=== PATIENT | female | born 1940 | race Caucasian/White ===

== ENCOUNTER 2018-12-30 21:25 | Emergency (ER) | payer MEDICARE, OTHER ==
--- NOTE | 2018-12-30 21:39 | EDM.PDOC ---
ED HPI GENERAL MEDICAL PROBLEM - General Stated Complaint: BLACK STOOL AND WEAKNESS Time Seen by Provider: 12/30/18 21:38 Source of Information: Reports: Patient History Limitations: Reports: No Limitations - History of Present Illness INITIAL COMMENTS - FREE TEXT/NARRATIVE: had 2x black stools yesterday, then again today and feels weak. - Related Data Allergies Allergy/AdvReac Type Severity Reaction Status Date / Time amlodipine besylate Allergy Cannot Verified 12/30/18 21:41 [From Norvasc] Remember lisinopril Allergy Cannot Verified 12/30/18 21:41 Remember losartan [Losartan] Allergy Cannot Verified 12/30/18 21:41 Remember sulfamethoxazole Allergy Other Verified 12/30/18 21:43 [From Bactrim] trimethoprim [From Bactrim] Allergy Other Verified 12/30/18 21:43 Home Meds: Home Meds Insulin Glarg,Human.Rec.Analog [Lantus Solostar] 29 units SQ BEDTIME 08/28/14 [ History] Metoprolol Succinate [Toprol XL] 25 mg PO BEDTIME 08/28/14 [History] Simvastatin 20 mg PO BEDTIME 08/28/14 [History] Acetaminophen 650 mg PO Q4HR PRN 07/09/15 [History] Aspirin [Halfprin] 81 mg PO DAILY 07/09/15 [History] Calcium Carbonate/Vitamin D3 [Calcium 600 + D Tablet] 1 each PO DAILY 07/09/15 [ History] Cyanocobalamin (Vitamin B12) [Vitamin B12] 1,000 mcg PO DAILY 07/09/15 [History] Ferrous Sulfate 325 mg PO TIDMEALS 07/09/15 [History] Insulin Aspart [Novolog Flexpen] 10 units SQ ASDIRECTED 07/09/15 [History] Insulin Aspart [Novolog Flexpen] 19 units SQ TIDMEALS 07/09/15 [History] PARoxetine HCl [Paxil] 40 mg PO DAILY 07/09/15 [History] Donepezil HCl 10 mg PO DAILY 12/30/18 [History] Insulin Aspart [NovoLOG] 24 unit SUBCUT TIDMEALS 12/30/18 [History] ED ROS GENERAL - Review of Systems Review Of Systems: ROS reveals no pertinent complaints other than HPI. ED EXAM, GI/ABD - Physical Exam Exam: See Below Exam Limited By: No Limitations General Appearance: Alert, WD/WN, No Apparent Distress. No: Active Emesis Ears: Hearing Grossly Normal Throat/Mouth: Normal Voice, No Airway Compromise Head: Atraumatic Neck: Non-Tender, Full Range of Motion Respiratory/Chest: No Respiratory Distress Cardiovascular: Regular Rate, Rhythm GI/Abdominal Exam: Soft, Non-Tender Rectal (Female) Exam: Black Stool, Heme + Stool Neurological: Alert, Oriented, Normal Cognition, No Motor/Sensory Deficits Psychiatric: Normal Affect, Normal Mood Skin Exam: Warm, Dry, Normal Color Lymphatic: No Adenopathy Course - Vital Signs Last Recorded V/S: Last Vital Signs Temp 37.1 C 12/30/18 21:37 Pulse 102 H 12/30/18 21:37 Resp 17 12/30/18 21:37 BP 173/72 H 12/30/18 21:37 Pulse Ox 96 12/30/18 21:37 - Orders/Labs/Meds Orders: Active Orders 24 hr Category Date Time Status Sodium Chloride 0.9% [Normal Saline] 1,000 ml Med 12/30/18 21:45 Active IV ASDIRECTED Medication Orders Sodium Chloride (Normal Saline) 1,000 mls @ 125 mls/hr IV ASDIRECTED VENITA Last Admin: 12/30/18 21:57 Dose: 125 mls/hr Labs: Laboratory Tests 12/30/18 12/30/18 12/30/18 Range/Units 21:53 21:53 21:53 WBC 12.8 H (5.0-10.0) 10^3/uL RBC 3.78 L (4.2-5.4) 10^6/uL Hgb 11.2 L (12.0-16.0) g/dL Hct 34.9 L (37.0-47.0) % MCV 92.3 (80-100) fL MCH 29.6 (27.0-34.0) pg MCHC 32.1 L (33.0-35.0) g/dL Plt Count 286 (150-450) 10^3/uL Neut % (Auto) 81.4 H (42.2-75.2) % Lymph % (Auto) 11.0 L (20.5-50.1) % [place] % (Auto) 6.2 (2-8) % Eos % (Auto) 1.1 (1.0-3.0) % Baso % (Auto) 0.3 (0.0-1.0) % PT 9.8 (9.0-12.0) SEC INR 1.0 (0.9-1.2) APTT 22.9 (22.0-34.0) SEC Sodium 140 (135-145) mmol/L Potassium 3.9 (3.6-5.0) mmol/L Chloride 105 (101-111) mmol/L Carbon Dioxide 23.0 (21.0-31.0) mmol/L Anion Gap 15.9 BUN 27 H (7-18) mg/dL Creatinine 1.2 (0.6-1.3) mg/dL Est Cr Clr Drug Dosing 32.83 mL/min Estimated GFR (MDRD) 43 BUN/Creatinine Ratio 22.50 Glucose 159 H (74-105) mg/dL Calcium 8.8 (8.4-10.2) mg/dl Total Bilirubin 0.7 (0.2-1.0) mg/dL AST 24 (10-42) IU/L ALT 9 L (10-60) IU/L Alkaline Phosphatase 62 (42-121) IU/L Total Protein 6.8 (6.7-8.2) g/dl Albumin 3.3 (3.2-5.5) g/dl Globulin 3.5 Albumin/Globulin Ratio 0.94 Meds: Medications Generic Name Dose Route Start Last Admin Trade Name Freq PRN Reason Stop Dose Admin Sodium Chloride 1,000 mls @ 125 mls/hr 12/30/18 21:45 12/30/18 21:57 Normal Saline IV 125 mls/hr ASDIRECTED VENITA Administration - Re-Assessments/Exams Free Text/Narrative Re-Assessment/Exam: 12/30/18 23:[address] Gomez @ who kindly accepted pt. Departure - Departure Time of Disposition: 23:37 Disposition: DC/Tfer to Acute Hospital 02 Condition: Fair Clinical Impression: Lacunar infarct, acute GI bleed Qualifiers: GI bleed type/associated pathology: unspecified gastrointestinal hemorrhage type Qualified Code(s): K92.2 - Gastrointestinal hemorrhage, unspecified - Discharge Information Forms: Interfacility Transfer EMTALA - My Orders Last 24 Hours: My Active Orders 12/30/18 21:45 Sodium Chloride 0.9% [Normal Saline] 1,000 ml IV ASDIRECTED - Assessment/Plan Last 24 Hours: My Active Orders 12/30/18 21:45 Sodium Chloride 0.9% [Normal Saline] 1,000 ml IV ASDIRECTED
[2018-12-30 21:41] VITALS: BP 173/72
[2018-12-30] MEDS ORDERED: Sodium Chloride 0.9% 1,000 ML IV SCH (21:45)
[2018-12-30 22:19] LABS: ANION GAP 15.9
== END 2018-12-31 01:23 ==
LOC: DL.ED 21:25
DX: I63.81 Other cerebral infarction due to occlusion or stenosis of small artery (principal); K92.2 Gastrointestinal hemorrhage, unspecified; Z88.8 Allergy status to other drugs, medicaments and biological substances; Z79.4 Long term (current) use of insulin; Z79.899 Other long term (current) drug therapy; Z79.82 Long term (current) use of aspirin
CPT/HCPCS: 36415; 70450; 80053; 82272; 85025; 85610; 85730; 96360; 96361; 99284; 99285-25; J7030

== ENCOUNTER 2019-01-07 09:38 | Emergency (ER) | payer MEDICARE, OTHER ==
--- NOTE | 2019-01-07 10:37 | EDM.PDOC ---
ED HPI GENERAL MEDICAL PROBLEM - General Chief Complaint: Genitourinary Problem Stated Complaint: DEHYDRATED Time Seen by Provider: 01/07/19 10:25 Source of Information: Reports: Patient, Family History Limitations: Reports: No Limitations - History of Present Illness INITIAL COMMENTS - FREE TEXT/NARRATIVE: This 78 yo female patient was brought to the ED by her daughter due to increased weakness, frequent urination and loose bowel movements. The patient was recently discharged from [facility] due to a possible GI Bleed. Results of the EGD and Colonoscopy demonstrated some erosion of the Duodenum, but no other evidence of bleeding. During the stay in the hospital, the patient did not get any blood for her hemoglobin (8.8 on admission and 9.0 on discharge) . Since she got home, the patient reports she has continued to be week and has not been able to do much. The patient's daughter reports that the patient has been having bowel and blader incontinence, but appears to have increased weakness over the past week. Duration: Day(s):, Constant, Getting Worse Location: Reports: Generalized Quality: Reports: Other Severity: Moderate Improves with: Reports: None Worsens with: Reports: None Context: Reports: Other Associated Symptoms: Reports: Weakness - Related Data Allergies Allergy/AdvReac Type Severity Reaction Status Date / Time amlodipine besylate Allergy Cannot Verified 12/30/18 21:41 [From Norvasc] Remember lisinopril Allergy Cannot Verified 12/30/18 21:41 Remember losartan [Losartan] Allergy Cannot Verified 12/30/18 21:41 Remember sulfamethoxazole Allergy Other Verified 12/30/18 21:43 [From Bactrim] trimethoprim [From Bactrim] Allergy Other Verified 12/30/18 21:43 Home Meds: Home Meds Insulin Glarg,Human.Rec.Analog [Lantus Solostar] 29 units SQ BEDTIME 08/28/14 [ History] Metoprolol Succinate [Toprol XL] 25 mg PO BEDTIME 08/28/14 [History] Simvastatin 20 mg PO BEDTIME 08/28/14 [History] Acetaminophen 650 mg PO Q4HR PRN 07/09/15 [History] Aspirin [Halfprin] 81 mg PO DAILY 07/09/15 [History] Calcium Carbonate/Vitamin D3 [Calcium 600 + D Tablet] 1 each PO DAILY 07/09/15 [ History] Cyanocobalamin (Vitamin B12) [Vitamin B12] 1,000 mcg PO DAILY 07/09/15 [History] Ferrous Sulfate 325 mg PO TIDMEALS 07/09/15 [History] Insulin Aspart [Novolog Flexpen] 10 units SQ ASDIRECTED 07/09/15 [History] Insulin Aspart [Novolog Flexpen] 19 units SQ TIDMEALS 07/09/15 [History] PARoxetine HCl [Paxil] 40 mg PO DAILY 07/09/15 [History] Donepezil HCl 10 mg PO DAILY 12/30/18 [History] Insulin Aspart [NovoLOG] 24 unit SUBCUT TIDMEALS 12/30/18 [History] Past Medical History HEENT History: Reports: Allergic Rhinitis, Impaired Vision Other HEENT History: pt wears glasses Cardiovascular History: Reports: High Cholesterol, Hypertension Gastrointestinal History: Reports: Diverticulosis, GERD, GI Bleed Genitourinary History: Reports: Urinary Incontinence Psychiatric History: Reports: Alzheimers Disease, Depression Endocrine/Metabolic History: Reports: Diabetes, Type II - Past Surgical History HEENT Surgical History: Reports: Cataract Surgery GI Surgical History: Reports: Colonoscopy, EGD Musculoskeletal Surgical History: Reports: Knee Replacement Social & Family History - Family History Family Medical History: Noncontributory - Tobacco Use Smoking Status *Q: Former Smoker Years of Tobacco use: 40 Packs/Tins Daily: 1 Used Tobacco, but Quit: Yes Month/Year Tobacco Last Used: 09/18/1999 - Caffeine Use Caffeine Use: Reports: Coffee - Recreational Drug Use Recreational Drug Use: No ED ROS GENERAL - Review of Systems Review Of Systems: ROS reveals no pertinent complaints other than HPI. ED EXAM, GENERAL - Physical Exam Exam: See Below General Appearance: Alert, WD/WN, Moderate Distress, Obese Eye Exam: Bilateral Eye: EOMI, Normal Inspection, PERRL Ears: Normal External Exam, Normal Canal, Hearing Grossly Normal, Normal TMs Nose: Normal Inspection, Normal Mucosa, No Blood Throat/Mouth: Normal Inspection, Normal Lips, Normal Teeth, Normal Gums, Normal Oropharynx, Normal Voice, No Airway Compromise Head: Atraumatic, Normocephalic Neck: Normal Inspection, Supple, Non-Tender, Full Range of Motion Respiratory/Chest: No Respiratory Distress, Lungs Clear, Normal Breath Sounds, No Accessory Muscle Use, Chest Non-Tender Cardiovascular: Normal Peripheral Pulses, Regular Rate, Rhythm, No Edema, No Gallop, No JVD, No Rub, Systolic Murmur (Grade 3/6) GI/Abdominal: Normal Bowel Sounds, Soft, Non-Tender, No Organomegaly, No Distention, No Abnormal Bruit, No Mass, Pelvis Stable, Other (obese) (Female) Exam: Deferred Rectal (Female) Exam: Deferred Back Exam: Normal Inspection Extremities: Normal Inspection, Normal Range of Motion, Non-Tender, Normal Capillary Refill, No Pedal Edema Neurological: Alert, Oriented, CN II-XII Intact Psychiatric: Normal Affect, Normal Mood Skin Exam: Warm, Dry, Intact, Normal Color, No Rash Lymphatic: No Adenopathy Course - Vital Signs Last Recorded V/S: Last Vital Signs Temp 36.3 C 01/07/19 11:20 Pulse 82 01/07/19 11:20 Resp 20 01/07/19 11:20 BP 145/69 H 01/07/19 11:20 Pulse Ox 90 L 01/07/19 11:20 - Orders/Labs/Meds Orders: Active Orders 24 hr Category Date Time Status Blood Glucose Check, Bedside [RC] ONETIME Care 01/07/19 10:20 Active CULTURE URINE [RM] Urgent Lab 01/07/19 10:37 Received Labs: Laboratory Tests 01/07/19 01/07/19 01/07/19 Range/Units 10:19 10:20 10:37 WBC (5.0-10.0) 10^3/uL RBC (4.2-5.4) 10^6/uL Hgb (12.0-16.0) g/dL Hct (37.0-47.0) % MCV (80-100) fL MCH (27.0-34.0) pg MCHC (33.0-35.0) g/dL Plt Count (150-450) 10^3/uL Neut % (Auto) (42.2-75.2) % Lymph % (Auto) (20.5-50.1) % [place] % (Auto) (2-8) % Eos % (Auto) (1.0-3.0) % Baso % (Auto) (0.0-1.0) % Sodium (135-145) mmol/L Potassium (3.6-5.0) mmol/L Chloride (101-111) mmol/L Carbon Dioxide (21.0-31.0) mmol/L Anion Gap BUN (7-18) mg/dL Creatinine (0.6-1.3) mg/dL Est Cr Clr Drug Dosing mL/min Estimated GFR (MDRD) BUN/Creatinine Ratio Glucose (74-105) mg/dL POC Glucose 190 H (83-110) mg/dl Calcium (8.4-10.2) mg/dl Total Bilirubin (0.2-1.0) mg/dL AST (10-42) IU/L ALT (10-60) IU/L Alkaline Phosphatase (42-121) IU/L Total Protein (6.7-8.2) g/dl Albumin (3.2-5.5) g/dl Globulin Albumin/Globulin Ratio Urine Color Cancelled Yellow Urine Appearance Cancelled Cloudy Urine pH Cancelled 7.0 Ur Specific [place] Cancelled 1.020 Urine Protein Cancelled >=300 H Urine Glucose (UA) Cancelled 100 H Urine Ketones Cancelled Negative Urine Occult Blood Cancelled Moderate H Urine Nitrite Cancelled Negative Urine Bilirubin Cancelled Negative Urine Urobilinogen Cancelled 0.2 Ur Leukocyte Esterase Cancelled Moderate H Urine RBC Cancelled 5-10 H Urine WBC Cancelled 50-75 H Ur Epithelial Cells Cancelled Rare Calcium Phosphate Cryst Cancelled Calcium Oxalate Crystal Cancelled Uric Acid Crystals Cancelled Triple Phos Crystals Cancelled Other Crystals Cancelled Amorphous Sediment Cancelled Urine Bacteria Cancelled Rare Hyaline Casts Cancelled Granular Casts Cancelled Fine Granular Casts Cancelled Coarse Granular Casts Cancelled Urine Mucus Cancelled Urine Other Cancelled Urine Trichomonas Cancelled Urine Yeast Cancelled Urinalysis Comment Cancelled 01/07/19 01/07/19 Range/Units 10:44 10:44 WBC 8.8 (5.0-10.0) 10^3/uL RBC 3.36 L (4.2-5.4) 10^6/uL Hgb 10.0 L (12.0-16.0) g/dL Hct 31.1 L (37.0-47.0) % MCV 92.6 (80-100) fL MCH 29.8 (27.0-34.0) pg MCHC 32.2 L (33.0-35.0) g/dL Plt Count 310 (150-450) 10^3/uL Neut % (Auto) 77.4 H (42.2-75.2) % Lymph % (Auto) 12.1 L (20.5-50.1) % [place] % (Auto) 7.9 (2-8) % Eos % (Auto) 2.5 (1.0-3.0) % Baso % (Auto) 0.1 (0.0-1.0) % Sodium 140 (135-145) mmol/L Potassium 3.7 (3.6-5.0) mmol/L Chloride 103 (101-111) mmol/L Carbon Dioxide 28.0 (21.0-31.0) mmol/L Anion Gap 12.7 BUN 11 (7-18) mg/dL Creatinine 1.1 (0.6-1.3) mg/dL Est Cr Clr Drug Dosing 35.81 mL/min Estimated GFR (MDRD) 48 BUN/Creatinine Ratio 10.00 Glucose 186 H (74-105) mg/dL POC Glucose (83-110) mg/dl Calcium 8.3 L (8.4-10.2) mg/dl Total Bilirubin 0.4 (0.2-1.0) mg/dL AST 13 (10-42) IU/L ALT 9 L (10-60) IU/L Alkaline Phosphatase 63 (42-121) IU/L Total Protein 6.0 L (6.7-8.2) g/dl Albumin 2.8 L (3.2-5.5) g/dl Globulin 3.2 Albumin/Globulin Ratio 0.88 Urine Color Urine Appearance Urine pH Ur Specific [place] Urine Protein Urine Glucose (UA) Urine Ketones Urine Occult Blood Urine Nitrite Urine Bilirubin Urine Urobilinogen Ur Leukocyte Esterase Urine RBC Urine WBC Ur Epithelial Cells Calcium Phosphate Cryst Calcium Oxalate Crystal Uric Acid Crystals Triple Phos Crystals Other Crystals Amorphous Sediment Urine Bacteria Hyaline Casts Granular Casts Fine Granular Casts Coarse Granular Casts Urine Mucus Urine Other Urine Trichomonas Urine Yeast Urinalysis Comment Departure - Departure Time of Disposition: 11:29 Disposition: Home, Self-Care 01 Condition: Fair Clinical Impression: UTI, Urinary tract infectious disease - Discharge Information *PRESCRIPTION DRUG MONITORING PROGRAM REVIEWED*: Not Applicable *COPY OF PRESCRIPTION DRUG MONITORING REPORT IN PATIENT NICHELLE: Not Applicable Instructions: Urinary Tract Infection, Adult, [id number] Forms: ED Department Discharge Care Plan Goals: The patient and family were advised of the examination and lab results during the visit. The patient was discharged with a script for Macrobid (100 mg) to take 1 by mouth 2 times per day for 7 days. The patient will be notified if the urine culture demonstrates another antibiotic would be more appropriate. If the patient has any additional symptoms or concerns, the patient should either return to the ED or visit her primary care facility. - My Orders Last 24 Hours: My Active Orders 01/07/19 10:20 Blood Glucose Check, Bedside [RC] ONETIME 01/07/19 10:37 CULTURE URINE [RM] Urgent - Assessment/Plan Last 24 Hours: My Active Orders 01/07/19 10:20 Blood Glucose Check, Bedside [RC] ONETIME 01/07/19 10:37 CULTURE URINE [RM] Urgent
[2019-01-07 11:09] LABS: ANION GAP 12.7
[2019-01-07 11:22] VITALS: BP 145/69
== END 2019-01-07 11:42 | disposition home or self-care (01) ==
LOC: DL.ED 09:38
DX: N39.0 Urinary tract infection, site not specified (principal); E78.00 Pure hypercholesterolemia, unspecified; I10 Essential (primary) hypertension; E11.9 Type 2 diabetes mellitus without complications; Z87.891 Personal history of nicotine dependence; Z88.8 Allergy status to other drugs, medicaments and biological substances; Z79.899 Other long term (current) drug therapy; Z79.4 Long term (current) use of insulin; Z79.82 Long term (current) use of aspirin
CPT/HCPCS: 36415; 51701; 80053; 81001; 82962; 85025; 87086; 87088; 99283; 99284

== ENCOUNTER 2019-10-28 04:20 | Emergency (ER) | payer MEDICARE, OTHER ==
[2019-10-28 04:31] VITALS: BP 114/42; PULSE 75
--- NOTE | 2019-10-28 04:37 | EDM.PDOC ---
ED HPI GENERAL MEDICAL PROBLEM - General Chief Complaint: Gastrointestinal Problem Stated Complaint: DIEABTIC OR G.I. ISSUE PER PT. Time Seen by Provider: 10/28/19 04:30 Source of Information: Reports: Patient, EMS History Limitations: Reports: No Limitations - History of Present Illness INITIAL COMMENTS - FREE TEXT/NARRATIVE: This 78 yo female patient was brought to the ED by [facility] due to feeling light headed and dizzy. The patient reports she was up going to the bathroom when she noticed the symptoms. The patient had dark runny stool prior to EMS arrival. The patient has a history of a previous GI bleed about 1 year ago. The patient reports she did not notice the dark stools before today. Onset: Today Duration: Constant Quality: Reports: Other Severity: Moderate Improves with: Reports: None Worsens with: Reports: None Context: Reports: Other Associated Symptoms: Reports: Weakness - Related Data Allergies Allergy/AdvReac Type Severity Reaction Status Date / Time amlodipine besylate Allergy Cannot Verified 10/28/19 04:31 [From Norvasc] Remember lisinopril Allergy Cannot Verified 10/28/19 04:31 Remember losartan [Losartan] Allergy Cannot Verified 10/28/19 04:31 Remember sulfamethoxazole Allergy Other Verified 10/28/19 04:31 [From Bactrim] trimethoprim [From Bactrim] Allergy Other Verified 10/28/19 04:31 Home Meds: Home Meds Insulin Glarg,Human.Rec.Analog [Lantus Solostar] 29 units SQ BEDTIME 08/28/14 [ History] Metoprolol Succinate [Toprol XL] 25 mg PO BEDTIME 08/28/14 [History] Simvastatin 20 mg PO BEDTIME 08/28/14 [History] Acetaminophen 650 mg PO Q4HR PRN 07/09/15 [History] Aspirin [Halfprin] 81 mg PO DAILY 07/09/15 [History] Calcium Carbonate/Vitamin D3 [Calcium 600 + D Tablet] 1 each PO DAILY 07/09/15 [ History] Cyanocobalamin (Vitamin B12) [Vitamin B12] 1,000 mcg PO DAILY 07/09/15 [History] Insulin Aspart [Novolog Flexpen] 8 units SQ ASDIRECTED 07/09/15 [History] Insulin Aspart [Novolog Flexpen] 19 units SQ WITHLUNCH 07/09/15 [History] PARoxetine HCl [Paxil] 40 mg PO DAILY 07/09/15 [History] Donepezil HCl 10 mg PO DAILY 12/30/18 [History] Insulin Aspart [NovoLOG] 29 unit SUBCUT WITHDINNER 12/30/18 [History] Pantoprazole Sodium [Protonix] 40 mg PO DAILY 10/28/19 [History] Past Medical History HEENT History: Reports: Allergic Rhinitis, Impaired Vision Other HEENT History: pt wears glasses Cardiovascular History: Reports: High Cholesterol, Hypertension Gastrointestinal History: Reports: Diverticulosis, GERD, GI Bleed Genitourinary History: Reports: Urinary Incontinence Psychiatric History: Reports: Alzheimers Disease, Depression Endocrine/Metabolic History: Reports: Diabetes, Type II - Past Surgical History HEENT Surgical History: Reports: Cataract Surgery GI Surgical History: Reports: Colonoscopy, EGD Musculoskeletal Surgical History: Reports: Knee Replacement Social & Family History - Family History Family Medical History: Noncontributory - Caffeine Use Caffeine Use: Reports: Coffee ED ROS GENERAL - Review of Systems Review Of Systems: Comprehensive ROS is negative, except as noted in HPI. ED EXAM, GI/ABD - Physical Exam Exam: See Below Exam Limited By: No Limitations General Appearance: Alert, WD/WN, Moderate Distress, Obese Eyes: Bilateral: Normal Appearance, EOMI Ears: Normal External Exam, Normal Canal, Hearing Grossly Normal, Normal TMs Nose: Normal Inspection, Normal Mucosa, No Blood Throat/Mouth: Normal Inspection, Normal Lips, Normal Teeth, Normal Gums, Normal Oropharynx, Normal Voice, No Airway Compromise Head: Atraumatic, Normocephalic Neck: Normal Inspection, Supple, Non-Tender, Full Range of Motion Respiratory/Chest: No Respiratory Distress, Lungs Clear, Normal Breath Sounds, No Accessory Muscle Use, Chest Non-Tender Cardiovascular: Normal Peripheral Pulses, Regular Rate, Rhythm, No Edema, No Gallop, No JVD, No Murmur, No Rub GI/Abdominal Exam: Normal Bowel Sounds, Soft, Non-Tender, No Organomegaly, No Distention, No Abnormal Bruit, No Mass, Pelvis Stable (Female) Exam: Deferred Extremities: Normal Inspection, Normal Range of Motion, Non-Tender, Normal Capillary Refill, No Pedal Edema Neurological: Alert, Oriented, CN II-XII Intact, Normal Cognition, Normal Gait, Normal Reflexes, No Motor/Sensory Deficits Psychiatric: Normal Affect, Normal Mood Skin Exam: Warm, Dry, Intact, Normal Color, No Rash Lymphatic: No Adenopathy Course - Vital Signs Last Recorded V/S: Last Vital Signs Temp 36.1 C 10/28/19 04:29 Pulse 75 10/28/19 04:29 Resp 20 10/28/19 04:29 BP 114/42 L 10/28/19 04:29 Pulse Ox 92 L 10/28/19 04:29 - Orders/Labs/Meds Orders: Active Orders 24 hr Category Date Time Status EKG Documentation Completion [RC] URGENT Care 10/28/19 04:26 Active Labs: Laboratory Tests 10/28/19 10/28/19 Range/Units 04:35 04:35 WBC 11.3 H (5.0-10.0) 10^3/uL RBC 3.32 L (4.2-5.4) 10^6/uL Hgb 9.0 L (12.0-16.0) g/dL Hct 30.2 L (37.0-47.0) % MCV 91.0 (80-100) fL MCH 27.1 (27.0-34.0) pg MCHC 29.8 L (33.0-35.0) g/dL Plt Count 351 (150-450) 10^3/uL Neut % (Auto) 75.9 H (42.2-75.2) % Lymph % (Auto) 15.8 L (20.5-50.1) % [place] % (Auto) 5.7 (2-8) % Eos % (Auto) 2.2 (1.0-3.0) % Baso % (Auto) 0.4 (0.0-1.0) % Sodium 139 (135-145) mmol/L Potassium 5.1 H (3.6-5.0) mmol/L Chloride 105 (101-111) mmol/L Carbon Dioxide 25.0 (21.0-31.0) mmol/L Anion Gap 14.1 BUN 45 H D (7-18) mg/dL Creatinine 1.3 (0.6-1.3) mg/dL Est Cr Clr Drug Dosing 30.30 mL/min Estimated GFR (MDRD) 40 BUN/Creatinine Ratio 34.61 Glucose 303 H (74-105) mg/dL Calcium 8.2 L (8.4-10.2) mg/dl Total Bilirubin 0.5 (0.2-1.0) mg/dL AST 15 (10-42) IU/L ALT 14 (10-60) IU/L Alkaline Phosphatase 64 (42-121) IU/L Troponin I < 0.02 (0.00-0.02) ng/ml Total Protein 5.5 L (6.7-8.2) g/dl Albumin 2.7 L (3.2-5.5) g/dl Globulin 2.8 Albumin/Globulin Ratio 0.96 - Re-Assessments/Exams Free Text/Narrative Re-Assessment/Exam: 10/28/19 05:35 A call was placed to [facility] in [place] to have the patient transferred. [facility] reported they do not have any open beds at this time. Departure - Departure Time of Disposition: 05:32 Disposition: DC/Tfer to [facility] 02 Condition: Fair Clinical Impression: GI bleed Qualifiers: GI bleed type/associated pathology: unspecified gastrointestinal hemorrhage type Qualified Code(s): K92.2 - Gastrointestinal hemorrhage, unspecified - Discharge Information *PRESCRIPTION DRUG MONITORING PROGRAM REVIEWED*: Not Applicable *COPY OF PRESCRIPTION DRUG MONITORING REPORT IN PATIENT NICHELLE: Not Applicable Forms: Interfacility Transfer EMTALA Care Plan Goals: Discussed the patient's history, examination and lab results with Dr. Bee ( [facility]). Dr. Bee accepted the patient for continued evaluation and further care as an inpatient at [facility]. The patient will be transported by [facility]. Sepsis Event Note - Evaluation Sepsis Screening Result: No Definite Risk - Focused Exam Vital Signs: Vital Signs Temp Pulse Resp BP Pulse Ox 10/28/19 04:29 36.1 C 75 20 114/42 L 92 L Date Exam was Performed: 10/28/19 Time Exam was Performed: 05:32 - My Orders Last 24 Hours: My Active Orders 10/28/19 04:26 EKG Documentation Completion [RC] URGENT - Assessment/Plan Last 24 Hours: My Active Orders 10/28/19 04:26 EKG Documentation Completion [RC] URGENT
[2019-10-28 05:01] LABS: ANION GAP 14.1; CHLORIDE,CL 105 mmol/L (101-111); SODIUM,NA 139 mmol/L (135-145)
== END 2019-10-28 06:10 ==
LOC: DL.ED 04:20
DX: K92.2 Gastrointestinal hemorrhage, unspecified (principal); I10 Essential (primary) hypertension; E11.9 Type 2 diabetes mellitus without complications; E78.00 Pure hypercholesterolemia, unspecified; K21.9 Gastro-esophageal reflux disease without esophagitis; F32.9 Major depressive disorder, single episode, unspecified; Z88.8 Allergy status to other drugs, medicaments and biological substances; Z88.2 Allergy status to sulfonamides; Z79.4 Long term (current) use of insulin; Z79.899 Other long term (current) drug therapy; Z79.82 Long term (current) use of aspirin
CPT/HCPCS: 36415; 80053; 82272; 84484; 85025; 93005; 99284; 99285

== ENCOUNTER 2020-01-11 18:47 | Emergency (ER) | payer MEDICARE, OTHER ==
[2020-01-11 19:06] VITALS: BP 146/58; PULSE 71
--- NOTE | 2020-01-11 19:22 | EDM.PDOC ---
ED HPI GENERAL MEDICAL PROBLEM - General Chief Complaint: Diabetic Complaint Stated Complaint: AMBULANCE Time Seen by Provider: 01/11/20 19:21 Source of Information: Reports: EMS History Limitations: Reports: Other (alzheimer) - History of Present Illness INITIAL COMMENTS - FREE TEXT/NARRATIVE: pt sent by EMS. neighbour called EMS since pt is not right and is diabetic, EMS got BS 40s @ scene gave glucagon. upon arrival BS 50s. pt has no c/o - Related Data Allergies Allergy/AdvReac Type Severity Reaction Status Date / Time amlodipine besylate Allergy Cannot Verified 01/11/20 18:58 [From Norvasc] Remember lisinopril Allergy Cannot Verified 01/11/20 18:58 Remember losartan [Losartan] Allergy Cannot Verified 01/11/20 18:58 Remember sulfamethoxazole Allergy Other Verified 01/11/20 18:58 [From Bactrim] trimethoprim [From Bactrim] Allergy Other Verified 01/11/20 18:58 Home Meds: Home Meds Insulin Glarg,Human.Rec.Analog [Lantus Solostar] 29 units SQ BEDTIME 08/28/14 [ History] Metoprolol Succinate [Toprol XL] 25 mg PO BEDTIME 08/28/14 [History] Simvastatin 20 mg PO BEDTIME 08/28/14 [History] Acetaminophen 650 mg PO Q4HR PRN 07/09/15 [History] Aspirin [Halfprin] 81 mg PO DAILY 07/09/15 [History] Calcium Carbonate/Vitamin D3 [Calcium 600 + D Tablet] 1 each PO DAILY 07/09/15 [ History] Cyanocobalamin (Vitamin B12) [Vitamin B12] 1,000 mcg PO DAILY 07/09/15 [History] Insulin Aspart [Novolog Flexpen] 8 units SQ ASDIRECTED 07/09/15 [History] Insulin Aspart [Novolog Flexpen] 19 units SQ WITHLUNCH 07/09/15 [History] PARoxetine HCl [Paxil] 40 mg PO DAILY 07/09/15 [History] Donepezil HCl 10 mg PO DAILY 12/30/18 [History] Insulin Aspart [NovoLOG] 29 unit SUBCUT WITHDINNER 12/30/18 [History] Pantoprazole Sodium [Protonix] 40 mg PO DAILY 10/28/19 [History] Past Medical History HEENT History: Reports: Allergic Rhinitis, Impaired Vision Other HEENT History: pt wears glasses Cardiovascular History: Reports: High Cholesterol, Hypertension Gastrointestinal History: Reports: Diverticulosis, GERD, GI Bleed Genitourinary History: Reports: Urinary Incontinence 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: Reports: Psychiatric History: Reports: Alzheimers Disease, Depression Endocrine/Metabolic History: Reports: Diabetes, Type II - Past Surgical History HEENT Surgical History: Reports: Cataract Surgery Cardiovascular Surgical History: Reports: Valve Replacement GI Surgical History: Reports: Colonoscopy, EGD Musculoskeletal Surgical History: Reports: Knee Replacement Social & Family History - Family History Family Medical History: Noncontributory - Tobacco Use Smoking Status *Q: Unknown Ever Smoked Second Hand Smoke Exposure: No - Caffeine Use Caffeine Use: Reports: Coffee - Recreational Drug Use Recreational Drug Use: No ED ROS GENERAL - Review of Systems Review Of Systems: Comprehensive ROS is negative, except as noted in HPI. ED EXAM GENERAL NO PERIP PULSE - Physical Exam Exam: See Below Exam Limited By: No Limitations General Appearance: Alert, WD/WN, No Apparent Distress Eye Exam: Bilateral Eye: PERRL (pupils ER @ 4mm) Ears: Normal Canal, Hearing Grossly Normal Throat/Mouth: Normal Voice, No Airway Compromise Head: Atraumatic Neck: Non-Tender, Full Range of Motion Respiratory/Chest: No Respiratory Distress Cardiovascular: Regular Rate, Rhythm GI/Abdominal: Soft, Non-Tender Neurological: Alert, No Motor/Sensory Deficits Psychiatric: Normal Affect, Normal Mood Skin Exam: Warm, Dry, Normal Color Lymphatic: No Adenopathy Course - Vital Signs Last Recorded V/S: Last Vital Signs Temp 35.6 C L 01/11/20 19:05 Pulse 71 01/11/20 19:05 Resp 16 01/11/20 19:05 BP 146/58 H 01/11/20 19:05 Pulse Ox 98 01/11/20 19:05 - Orders/Labs/Meds Labs: Laboratory Tests 01/11/20 01/11/20 01/11/20 Range/Units 19:53 19:53 19:53 WBC 12.6 H (5.0-10.0) 10^3/uL RBC 4.14 L (4.2-5.4) 10^6/uL Hgb 11.9 L D (12.0-16.0) g/dL Hct 38.3 (37.0-47.0) % MCV 92.5 (80-100) fL MCH 28.7 (27.0-34.0) pg MCHC 31.1 L (33.0-35.0) g/dL Plt Count 361 (150-450) 10^3/uL Neut % (Auto) 88.5 H (42.2-75.2) % Lymph % (Auto) 5.6 L (20.5-50.1) % Lamar % (Auto) 5.0 (2-8) % Eos % (Auto) 0.7 L (1.0-3.0) % Baso % (Auto) 0.2 (0.0-1.0) % Sodium 145 (136-145) mmol/L Potassium 4.1 (3.5-5.1) mmol/L Chloride 106 (98-107) mmol/L Carbon Dioxide 33 H (21-32) mmol/L Anion Gap 10.1 (7-13) mEq/L BUN 26 H (7-18) mg/dL Creatinine 1.61 H (0.55-1.02) mg/dL Est Cr Clr Drug Dosing 24.07 mL/min Estimated GFR (MDRD) 31 BUN/Creatinine Ratio 16.1 (No establ ref range) Glucose 96 (74-99) mg/dL Lactic Acid 0.8 (0.4-2.0) mmol/L Calcium 9.1 (8.5-10.1) mg/dL Total Bilirubin 0.3 (0.2-1.0) mg/dL AST 15 (15-37) U/L ALT 17 (14-59) U/L Alkaline Phosphatase 102 (46-116) U/L Total Protein 7.5 (6.4-8.2) g/dL Albumin 3.3 L (3.4-5.0) g/dL Globulin 4.2 Albumin/Globulin Ratio 0.79 - Re-Assessments/Exams Free Text/Narrative Re-Assessment/Exam: 01/11/20 20:32 results discussed with pt who states feels fine and wants go home. states she might have taken her insulin twice today. Departure - Departure Time of Disposition: 20:33 Disposition: Home, Self-Care 01 Condition: Good Clinical Impression: Hypoglycemia - Discharge Information Instructions: Hypoglycemia, [id number] Forms: ED Department Discharge Additional Instructions: follow up at clinic Sepsis Event Note - Evaluation Sepsis Screening Result: No Definite Risk - Focused Exam Vital Signs: Vital Signs Temp Pulse Resp BP Pulse Ox 01/11/20 19:05 35.6 C L 71 16 146/58 H 98 Date Exam was Performed: 01/11/20 Time Exam was Performed: 20:32
[2020-01-11 20:17] LABS: ANION GAP 10.1 mEq/L (7-13)
== END 2020-01-11 20:43 | disposition home or self-care (01) ==
LOC: DL.ED 18:47
DX: E11.649 Type 2 diabetes mellitus with hypoglycemia without coma (principal); I10 Essential (primary) hypertension; E78.00 Pure hypercholesterolemia, unspecified; K21.9 Gastro-esophageal reflux disease without esophagitis; F32.9 Major depressive disorder, single episode, unspecified; G30.9 Alzheimer's disease, unspecified; F02.80 Dementia in other diseases classified elsewhere, unspecified severity, without behavioral disturbance, psychotic disturbance, mood disturbance, and anxiety; Z88.8 Allergy status to other drugs, medicaments and biological substances; Z88.2 Allergy status to sulfonamides; Z79.4 Long term (current) use of insulin; Z79.82 Long term (current) use of aspirin; Z79.899 Other long term (current) drug therapy
CPT/HCPCS: 36415; 80053; 82962; 83605; 85025; 99285

== ENCOUNTER 2020-08-31 16:26 | Emergency (ER) | payer MEDICARE, OTHER ==
--- NOTE | 2020-08-31 16:52 | EDM.PDOC ---
ED HPI GENERAL MEDICAL PROBLEM - General Stated Complaint: AMBULANCE - SHE FELL Time Seen by Provider: 08/31/20 17:07 Source of Information: Reports: Patient, EMS, EMS Notes Reviewed, Family, RN, RN Notes Reviewed History Limitations: Reports: No Limitations - History of Present Illness INITIAL COMMENTS - FREE TEXT/NARRATIVE: PRIMARY TRAUMA SURVEY: Arrives in c-collar. Pt. awake, alert, oriented to person, place, and date. AIRWAY: Patent nasal and oral airways. Conversant with clear speech. BREATHING: Spontaneous respirations, with lungs CTA B/L. Good color, no cyanosis. CIRCULATION: Intact peripheral pulses at all 4 distal extremities, normal capillary refill time at all four extremities distal digits. Heart RRR, no murmur, no rub. DISABILITY/DEFORMITIES: No bleeding. No upper or lower extremity pain, obvious deformity. 1.5cm x 1.5cm abrasion/skin tear to the center of the forehead. Minimal bleeding.No other lacerations, or other signs of injury. Shailesh pelvis intact, stable and non-tender. Abdomen benign to exam. Chest non-tender anteriorly, no flail chest, crepitus, or subcutaneous emphysema. CN II-XII intact. Skin clean, dry, warm, and intact. EXPOSURE: Pt. was log rolled with maintenance of c-spine immobilization. No visible injury to the back. Pt c/o "aching" in the back from sitting/lying on the floor all day. Patient c/o left sided neck pain. SECOND TRAUMA SURVEY FOLLOWS: Patient is an 79 year old female who presents to the ER per [facility] after falling a little after 0800 today. Patient states she crawled to a chair, but was unable to lift herself up off the floor. Patient states she hit her head/face on the heat register louis she fell. Patient states she did not lose consciousness. GCS upon arrival: 15 GCS at 1 hour: 15 GCS at discharge: 15 C-spine cleared at 1710. C-collar removed at 1711. Onset: Today, Sudden - Related Data Allergies Allergy/AdvReac Type Severity Reaction Status Date / Time amlodipine besylate Allergy Cannot Verified 01/11/20 18:58 [From [facility]] Remember lisinopril Allergy Cannot Verified 01/11/20 18:58 Remember losartan [Losartan] Allergy Cannot Verified 04/25/20 18:58 Remember sulfamethoxazole Allergy Other Verified 01/11/20 18:58 [From Bactrim] trimethoprim [From Bactrim] Allergy Other Verified 01/11/20 18:58 Home Meds: Home Meds Insulin Glarg,Human.Rec.Analog [Lantus Solostar] 29 units SQ BEDTIME 08/28/14 [History] Metoprolol Succinate [Toprol XL] 25 mg PO BEDTIME 08/28/14 [History] Simvastatin 20 mg PO BEDTIME 08/28/14 [History] Acetaminophen 650 mg PO Q4HR PRN 07/09/15 [History] Aspirin [Halfprin] 81 mg PO DAILY 07/09/15 [History] Calcium Carbonate/Vitamin D3 [Calcium 600 + D Tablet] 1 each PO DAILY 07/09/15 [History] Cyanocobalamin (Vitamin B12) [Vitamin B12] 1,000 mcg PO DAILY 07/09/15 [History] Insulin Aspart [Novolog Flexpen] 8 units SQ ASDIRECTED 07/09/15 [History] Insulin Aspart [Novolog Flexpen] 19 units SQ WITHLUNCH 07/09/15 [History] PARoxetine HCl [Paxil] 40 mg PO DAILY 07/09/15 [History] Donepezil HCl 10 mg PO DAILY 12/30/18 [History] Insulin Aspart [NovoLOG] 29 unit SUBCUT WITHDINNER 12/30/18 [History] Pantoprazole Sodium [Protonix] 40 mg PO DAILY 10/28/19 [History] Past Medical History HEENT History: Reports: Allergic Rhinitis, Impaired Vision Other HEENT History: pt wears glasses Cardiovascular History: Reports: High Cholesterol, Hypertension Gastrointestinal History: Reports: Diverticulosis, GERD, GI Bleed Genitourinary History: Reports: Urinary Incontinence 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: Psychiatric History: Reports: Alzheimers Disease, Depression Endocrine/Metabolic History: Reports: Diabetes, Type II - Past Surgical History HEENT Surgical History: Reports: Cataract Surgery Cardiovascular Surgical History: Reports: Valve Replacement GI Surgical History: Reports: Colonoscopy, EGD Musculoskeletal Surgical History: Reports: Knee Replacement Social & Family History - Family History Family Medical History: No Pertinent Family History - Caffeine Use Caffeine Use: Reports: Coffee Review of Systems - Review of Systems Review Of Systems: Comprehensive ROS is negative, except as noted in HPI. ED EXAM, GENERAL - Physical Exam Exam: See Below Exam Limited By: No Limitations General Appearance: Alert, WD/WN, No Apparent Distress Eye Exam: Bilateral Eye: EOMI, Normal Inspection, PERRL (2 brisk) Ears: Normal External Exam, Hearing Grossly Normal Nose: Normal Inspection, Normal Mucosa, No Blood Throat/Mouth: Normal Inspection, Normal Lips, Normal Teeth, Normal Gums, Normal Oropharynx, Normal Voice, No Airway Compromise Head: Normocephalic, Facial Swelling (forehead), Facial Tenderness (forehead, eyes), Other (Large hematoma to the center of the forehead, abrasion/skin tear to the center of the forehead, large raccoon eyes. ) Neck: Limited Range of Motion, Tender Lateral Respiratory/Chest: No Respiratory Distress, Lungs Clear, No Accessory Muscle Use, Chest Non-Tender, Decreased Breath Sounds Cardiovascular: Normal Peripheral Pulses, Regular Rate, Rhythm, No Edema, No Gallop, No JVD, No Murmur, No Rub Peripheral Pulses: 2+: Radial (L), Radial (R), Dorsalis Pedis (L), Dorsalis Pedis (R) GI/Abdominal: Normal Bowel Sounds, Soft, Non-Tender, No Organomegaly, No Distention, No Abnormal Bruit, No Mass, Pelvis Stable (Female) Exam: Deferred Rectal (Female) Exam: Deferred Back Exam: Normal Inspection, Decreased Range of Motion, Paraspinal Tenderness Extremities: Normal Inspection, Non-Tender, No Pedal Edema, Normal Capillary Refill, Limited Range of Motion Neurological: Alert, Oriented, CN II-XII Intact, Normal Cognition, No Motor/Sensory Deficits Psychiatric: Normal Affect, Normal Mood Skin Exam: Warm, Dry, Intact, Normal Color, No Rash Lymphatic: No Adenopathy Course - Orders/Labs/Meds Orders: Active Orders 24 hr Category Date Time Status UA W/EDYTA RFLX IF INDICATED [URIN] Stat Lab 08/31/20 16:26 Ordered Labs: Laboratory Tests 08/31/20 08/31/20 08/31/20 Range/Units 16:46 16:46 16:46 WBC 12.4 H (5.0-10.0) 10^3/uL RBC 4.68 (4.2-5.4) 10^6/uL Hgb 13.7 D (12.0-16.0) g/dL Hct 41.9 (37.0-47.0) % MCV 89.5 D (80-100) fL MCH 29.3 (27.0-34.0) pg MCHC 32.7 L (33.0-35.0) g/dL Plt Count 278 D (150-450) 10^3/uL Neut % (Auto) 84.0 H (42.2-75.2) % Lymph % (Auto) 9.4 L (20.5-50.1) % Haines % (Auto) 5.4 (2-8) % Eos % (Auto) 0.9 L (1.0-3.0) % Baso % (Auto) 0.3 (0.0-1.0) % PT 10.5 (9.0-12.0) SEC INR 1.1 (0.9-1.2) Sodium 139 (136-145) mmol/L Potassium 4.2 (3.5-5.1) mmol/L Chloride 101 (98-107) mmol/L Carbon Dioxide 26 (21-32) mmol/L Anion Gap 16.2 H (7-13) mEq/L BUN 19 H (7-18) mg/dL Creatinine 1.37 H (0.55-1.02) mg/dL Est Cr Clr Drug Dosing TNP Estimated GFR (MDRD) 37 BUN/Creatinine Ratio 13.9 (No establ ref range) Glucose 145 H (74-99) mg/dL Calcium 9.1 (8.5-10.1) mg/dL Total Bilirubin 0.4 (0.2-1.0) mg/dL AST 15 (15-37) U/L ALT 18 (14-59) U/L Alkaline Phosphatase 102 (46-116) U/L Total Protein 6.9 (6.4-8.2) g/dL Albumin 3.5 (3.4-5.0) g/dL Globulin 3.4 Albumin/Globulin Ratio 1.0 Meds: Medications Discontinued Medications Generic Name Dose Route Start Last Admin Trade Name Freq PRN Reason Stop Dose Admin Bacitracin 1 dose 08/31/20 17:27 08/31/20 17:42 Bacitracin Oint 1 Gm TOP 08/31/20 17:28 1 dose ONETIME ONE Administration - Radiology Interpretation Free Text/Narrative:: T cervical spine without contrast: Chronic severe C6-7 disc disease. No cervical fracture or dislocation Head CT without contrast: Extracerebral frontal scalp contusion. Multi-infarct disease and severe atrophy. No sign of skull fracture or acute intracranial bleed. CT max/face/sinus without contrast: 1. Midline extracranial prefrontal soft tissue swelling/hematoma. No foreign bodies. 2. No fracture of the underlying skull, nonpneumatized frontal sinuses. Symmetric clear pneumatization of the ethmoid maxillary and sphenoid sinuses. Nasal septum midline. No fractures nasal or anterior maxillary spine. 3. No orbital or zygomatic arch fractures. Symmetric normal optic globes. No retrobulbar hematoma. 4. Edentulous maxilla. Chronic arthritic changes TMJs Conclusion: No facial bone fractures See radiologist report Departure - Departure Time of Disposition: 17:35 Disposition: Home, Self-Care 01 Condition: Fair Clinical Impression: Fall at home Qualifiers: Encounter type: initial encounter Qualified Code(s): W19.XXXA - Unspecified fall, initial encounter Facial contusion Qualifiers: Encounter type: initial encounter Qualified Code(s): S00.83XA - Contusion of other part of head, initial encounter - Discharge Information *PRESCRIPTION DRUG MONITORING PROGRAM REVIEWED*: No *COPY OF PRESCRIPTION DRUG MONITORING REPORT IN PATIENT NICHELLE: No Instructions: How to Use Cold Therapy, [id number], Facial or Scalp Contusion, [id number] Forms: ED Department Discharge Additional Instructions: Low up with your primary care provider the end of this week or next week Return to the ER with any worsening of symptoms May use Tylenol as directed for pains/aches - My Orders Last 24 Hours: My Active Orders 08/31/20 16:26 UA W/EDYTA RFLX IF INDICATED [URIN] Stat - Assessment/Plan Last 24 Hours: My Active Orders 08/31/20 16:26 UA W/EDYTA RFLX IF INDICATED [URIN] Stat
--- NOTE | 2020-08-31 16:59 | CT ---
EXAMINATION: Cervical Spine wo Cont SEX: Female AGE: 79 years CLINICAL HISTORY: 79-year-old female injured in fall (at home) ; head trauma, some hours ago. No LOC. Scan technique: Volume acquisition of data emergency unenhanced CT scan of the cervical spine obtained with the patient lying supine on the Siemens multislice scanner [place], [place]. All data archived in the PACS system for storage, reformatting axial/sagittal/coronal planes and study. No comparison films of the spine immediately available. INTERPRETATION: 1. Dense reactive atlantoaxial sclerosis and evidence of chronic severe lower cervical disc disease i.e. interspace narrowing endplate sclerosis and hypertrophic marginal/uncinate spur formation C6-7. 2. Osteoporosis. No pathologic skeletal lesions or congenital abnormalities. No cervical ribs. 3. No prevertebral soft tissue swelling, cervical fracture, spondylolisthesis or jump locked facets. 4. Lung apices clear. 5. Symmetric clear pneumatization of the mastoid sinuses. No basal skull fracture. CONCLUSION: Chronic severe C6-7 disc disease. No cervical fracture or dislocation.
--- NOTE | 2020-08-31 17:05 | CT ---
EXAMINATION: Head wo Cont SEX: Female AGE: 79 years CLINICAL HISTORY: 7-year-old female for head trauma (fall at home). No LOC. Chronic C6-7 disc disease. Scan technique: Volume acquisition of data emergency unenhanced CT scan of the head and brain obtained with patient lying supine on the Siemens multislice scanner [place], [place]. All data archived in the PACS system for storage, reformatting axial/sagittal/coronal planes and study. Comparison CT scan of the head 21 months prior (30 December 2018) immediately available. Interpretation: Abnormal. 1. Large extracranial frontal scalp contusion/hematoma. No foreign bodies or subcutaneous air. 2. Uniformly thick bony calvarium without sign of underlying skull fracture or direct/contrecoup brain contusion. 3. Generalized asymmetric severe cerebral cortical atrophy changes and signs of encephalomalacia that were evident on previous exam 30 December 2018. 4. 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 5. No sign of supratentorial or posterior fossa mass lesion. 6. No acute intracerebral, intraventricular or subarachnoid bleed. 7. No abnormal extracerebral/intracranial epidural or subdural hematomas. 8. Cerebellum and brainstem unremarkable and unchanged. 9. Symmetric clear pneumatization of the paranasal and mastoid sinuses. CONCLUSION: Extracerebral frontal scalp contusion. Multi-infarct disease and severe atrophy. No sign of skull fracture or acute intracranial bleed.
--- NOTE | 2020-08-31 17:09 | CT ---
EXAMINATION: Max Facial Sinus wo Cont SEX: Female AGE: 79 years CLINICAL HISTORY: 79-year-old female injured in fall. Forehead trauma but no loss of consciousness. "Multi-infarct ischemic disease; severe atrophy but no acute intracranial bleed; chronic C6-7 disc disease". Scan technique: Volume acquisition of data emergency unenhanced CT scan of the facial bones obtained with patient lying supine on the Siemens multislice scanner [facility]. All data archived in the PACS system for storage, reformatting axial/sagittal/coronal planes and study. Interpretation: 1. Midline extracranial prefrontal soft tissue swelling/hematoma. No foreign bodies. 2. No fracture of the underlying skull (non pneumatized frontal sinuses). Symmetric clear pneumatization of the ethmoid maxillary and sphenoid sinuses. Nasal septum midline. No fractures nasal or anterior maxillary spine. 3. No orbital or zygomatic arch fractures. Symmetric normal optic globes. No retrobulbar hematoma. 4. Edentulous maxilla. Chronic arthritic changes TMJs. CONCLUSION: No facial bone fractures.
[2020-08-31 17:23] LABS: ANION GAP 16.2 mEq/L (7-13); CHLORIDE,CL 101 mmol/L (98-107); SODIUM,NA 139 mmol/L (136-145)
[2020-08-31] MEDS ORDERED: Bacitracin Oint 1 GM U/D Packet TOP ONE (17:27)
== END 2020-08-31 17:37 | disposition home or self-care (01) ==
LOC: DL.ED 16:26
DX: S00.83XA Contusion of other part of head, initial encounter (principal); M54.2 Cervicalgia; I10 Essential (primary) hypertension; E78.00 Pure hypercholesterolemia, unspecified; K21.9 Gastro-esophageal reflux disease without esophagitis; E11.9 Type 2 diabetes mellitus without complications; F32.9 Major depressive disorder, single episode, unspecified; G30.9 Alzheimer's disease, unspecified; Z88.2 Allergy status to sulfonamides; Z88.8 Allergy status to other drugs, medicaments and biological substances; Z79.4 Long term (current) use of insulin; Z79.82 Long term (current) use of aspirin; Z79.899 Other long term (current) drug therapy; W01.10XA Fall on same level from slipping, tripping and stumbling with subsequent striking against unspecified object, initial encounter; Y92.009 Unspecified place in unspecified non-institutional (private) residence as the place of occurrence of the external cause
CPT/HCPCS: 36415; 70450; 70486; 72125; 80053; 85025; 85610; 99283; 99284-25

== ENCOUNTER 2022-07-17 07:58 | Emergency (ER) | payer MEDICARE, OTHER ==
[2022-07-17 07:41] VITALS: BP 156/69; PULSE 74
[2022-07-17 07:47] LABS: PTT,PARTIAL THROMBOPLSTIN TIME 25.7 SEC (22.0-34.0)
[~2022-07-17 07:58] MED LIST: Pantoprazole 40 MG Vial IVPUSH ONE
[2022-07-17] MEDS ORDERED: Sodium Chloride 0.9% 1,000 ML IV SCH (08:00)
[2022-07-17] MEDS: Pantoprazole 40 MG in Sodium Chloride 0.9% 100 ML IV SCH ×2 (08:08→14:27)
[2022-07-17] MEDS: Sodium Chloride 0.9% 10 ML Syringe FLUSH PRN ×2 (08:08→14:27)
[2022-07-17 08:32] LABS: ANION GAP 11.8 mEq/L (7-13)
[2022-07-17] MEDS ORDERED: Sertraline 50 MG Tab PO ONE (09:33)
== END 2022-07-17 18:11 ==
LOC: DL.ED 07:58
DX: K92.2 Gastrointestinal hemorrhage, unspecified (principal); E78.00 Pure hypercholesterolemia, unspecified; I10 Essential (primary) hypertension; E11.9 Type 2 diabetes mellitus without complications; Z79.899 Other long term (current) drug therapy; Z79.4 Long term (current) use of insulin; Z79.82 Long term (current) use of aspirin; Z88.1 Allergy status to other antibiotic agents; Z88.8 Allergy status to other drugs, medicaments and biological substances
CPT/HCPCS: 36410; 36415; 80053; 81001; 82150; 82272; 83605; 83690; 85014; 85018; 85025; 85610; 85730; 87086; 87088; 87186; 96365; 96366; 96376; 99285; A9270; C9113; J3490; J7030

== ENCOUNTER 2023-03-30 09:18 | Emergency (ER) | payer MEDICARE, OTHER, MEDICAID ==
[2023-03-30 09:26] VITALS: BP 134/62; PULSE 78
[2023-03-30 10:18] LABS: APPEARANCE,URINE CLOUDY (CLEAR); BILIRUBIN,URINE NEGATIVE (NEGATIVE); COLOR,URINE YELLOW (YELLOW); GLUCOSE,URINE NEGATIVE (NEGATIVE); KETONES,URINE NEGATIVE (NEGATIVE); LEUKOCYTE ESTERASE,URINE MODERATE (NEGATIVE); NITRITE,URINE NEGATIVE (NEGATIVE); OCCULT BLOOD,URINE TRACE-INTACT (NEGATIVE); PH,URINE 5.5 (5.0-9.0); PROTEIN,URINE NEGATIVE (NEGATIVE); UROBILINOGEN,URINE 0.2 mg/dL (0.2-1.0)
[2023-03-30 10:26] LABS: WBC,URINE >100 /HPF (0-5/HPF)
[2023-03-30 10:27] LABS: BACTERIA,URINE MANY /HPF (0-FEW/HPF); EPITHELIAL CELLS,URINE MODERATE /HPF (NOT SEEN); RBC,URINE 0-5 /HPF (0-5)
== END 2023-03-30 11:40 ==
LOC: DL.ED 09:18
DX: L89.151 Pressure ulcer of sacral region, stage 1 (principal); N30.00 Acute cystitis without hematuria; E11.9 Type 2 diabetes mellitus without complications; K21.9 Gastro-esophageal reflux disease without esophagitis; E78.00 Pure hypercholesterolemia, unspecified; I10 Essential (primary) hypertension; Z79.4 Long term (current) use of insulin; Z79.82 Long term (current) use of aspirin; M19.90 Unspecified osteoarthritis, unspecified site; Z79.899 Other long term (current) drug therapy; Z88.8 Allergy status to other drugs, medicaments and biological substances; Z88.2 Allergy status to sulfonamides
CPT/HCPCS: 81001; 87086; 87088; 87186; 99284; 99285; C1758

== ENCOUNTER 2023-05-17 09:23 | Emergency (ER) | payer MEDICARE, OTHER, MEDICAID ==
[2023-05-17 09:57] LABS: BASOPHILS PERCENT AUTO 0.3 % (0.0-1.0); EOSINOPHILS PERCENT AUTO 2.3 % (1.0-3.0); HEMATOCRIT 30.8 % (37.0-47.0); HEMOGLOBIN 10.1 g/dL (12.0-16.0); LYMPHOCYTES PERCENT AUTO 7.9 % (20.5-50.1); MEAN CORPUSCULAR HEMOGLOBIN 29.1 pg (27.0-34.0); MEAN CORPUSCULAR HGB CONC 32.8 g/dL (33.0-35.0); MEAN CORPUSCULAR VOLUME 88.8 fL (80-100); MONOCYTES PERCENT AUTO 6.1 % (2-8); NEUTROPHILS PERCENT AUTO 83.4 % (42.2-75.2); PLATELET COUNT,PLT 254 10^3/uL (150-450); RED BLOOD CELL COUNT 3.47 10^6/uL (4.2-5.4); WHITE BLOOD CELL COUNT,WBC 11.9 10^3/uL (5.0-10.0)
[2023-05-17] MEDS ORDERED: Sodium Chloride 0.9% 500 ML IV SCH (10:00)
[2023-05-17 10:23] LABS: APPEARANCE,URINE CLOUDY (CLEAR); BILIRUBIN,URINE NEGATIVE (NEGATIVE); COLOR,URINE YELLOW (YELLOW); GLUCOSE,URINE NEGATIVE (NEGATIVE); KETONES,URINE NEGATIVE (NEGATIVE); LEUKOCYTE ESTERASE,URINE MODERATE (NEGATIVE); NITRITE,URINE NEGATIVE (NEGATIVE); OCCULT BLOOD,URINE TRACE-INTACT (NEGATIVE); PH,URINE 5.5 (5.0-9.0); PROTEIN,URINE NEGATIVE (NEGATIVE); UROBILINOGEN,URINE 0.2 mg/dL (0.2-1.0)
[2023-05-17 10:25] LABS: ALBUMIN 3.2 g/dL (3.4-5.0); ANION GAP 16.7 mEq/L (7-13); BILIRUBIN TOTAL 0.2 mg/dL (0.2-1.0); BUN/CREATININE RATIO 39.5 (No establ ref range); CALCIUM 8.8 mg/dL (8.5-10.1); CREATININE 3.57 mg/dL (0.55-1.02); EST CRCL DRUG DOSING (CG) 9.44 mL/min; MAGNESIUM 2.3 mg/dL (1.8-2.4); POTASSIUM,K 3.7 mmol/L (3.5-5.1); TSH ULTRASENSITIVE 4.54 uIU/mL (0.36-3.74)
[2023-05-17 10:27] LABS: A/G RATIO 0.84
[2023-05-17 10:34] LABS: WBC,URINE SEMI-PACKED /HPF (0-5/HPF)
[2023-05-17 10:35] LABS: BACTERIA,URINE MANY /HPF (0-FEW/HPF); EPITHELIAL CELLS,URINE FEW /HPF (NOT SEEN); MUCUS,URINE NOT SEEN /LPF (NOT SEEN)
[2023-05-17] MEDS ORDERED: cefTRIAXone 1 GM Vial IVPUSH ONE (10:52)
== END 2023-05-17 12:30 ==
LOC: DL.ED 09:23
DX: E86.0 Dehydration (principal); I95.1 Orthostatic hypotension; I12.9 Hypertensive chronic kidney disease with stage 1 through stage 4 chronic kidney disease, or unspecified chronic kidney disease; E11.22 Type 2 diabetes mellitus with diabetic chronic kidney disease; N18.9 Chronic kidney disease, unspecified; N17.9 Acute kidney failure, unspecified; E78.00 Pure hypercholesterolemia, unspecified; K21.9 Gastro-esophageal reflux disease without esophagitis; M19.90 Unspecified osteoarthritis, unspecified site; Z88.8 Allergy status to other drugs, medicaments and biological substances; Z88.2 Allergy status to sulfonamides; Z79.82 Long term (current) use of aspirin; Z79.4 Long term (current) use of insulin; Z79.899 Other long term (current) drug therapy
CPT/HCPCS: 36415; 71045; 80053; 81001; 83735; 84443; 84484; 85025; 87086; 93005; 96361; 96374; 99285-25; C1758; J0696; J7040

== ENCOUNTER 2023-06-03 13:05 | Emergency (ER) | payer MEDICARE, OTHER, MEDICAID ==
[2023-06-03] MEDS: Sodium Chloride 0.9% 10 ML Syringe FLUSH PRN ×2 (13:36→15:11)
[2023-06-03 13:40] LABS: BASOPHILS PERCENT AUTO 0.3 % (0.0-1.0); EOSINOPHILS PERCENT AUTO 1.9 % (1.0-3.0); HEMATOCRIT 30.9 % (37.0-47.0); HEMOGLOBIN 9.7 g/dL (12.0-16.0); LYMPHOCYTES PERCENT AUTO 9.9 % (20.5-50.1); MEAN CORPUSCULAR HEMOGLOBIN 28.7 pg (27.0-34.0); MEAN CORPUSCULAR HGB CONC 31.4 g/dL (33.0-35.0); MEAN CORPUSCULAR VOLUME 91.4 fL (80-100); MONOCYTES PERCENT AUTO 5.3 % (2-8); NEUTROPHILS PERCENT AUTO 82.6 % (42.2-75.2); PLATELET COUNT,PLT 226 10^3/uL (150-450); RED BLOOD CELL COUNT 3.38 10^6/uL (4.2-5.4); WHITE BLOOD CELL COUNT,WBC 9.6 10^3/uL (5.0-10.0)
[2023-06-03 13:55] LABS: INR 0.9 (0.9-1.2); PROTHROMBIN TIME 9.6 SEC (9.0-12.0); PTT,PARTIAL THROMBOPLSTIN TIME 24.3 SEC (22.0-34.0)
[2023-06-03 13:55] LABS: APPEARANCE,URINE SLIGHTLY CLOUDY (CLEAR); BILIRUBIN,URINE NEGATIVE (NEGATIVE); COLOR,URINE YELLOW (YELLOW); GLUCOSE,URINE NEGATIVE (NEGATIVE); KETONES,URINE NEGATIVE (NEGATIVE); LEUKOCYTE ESTERASE,URINE MODERATE (NEGATIVE); NITRITE,URINE NEGATIVE (NEGATIVE); OCCULT BLOOD,URINE TRACE-INTACT (NEGATIVE); PH,URINE 5.5 (5.0-9.0); PROTEIN,URINE NEGATIVE (NEGATIVE); UROBILINOGEN,URINE 0.2 mg/dL (0.2-1.0)
[2023-06-03 13:57] LABS: ALANINE AMINOTRANSFERASE,ALT 13 U/L (14-59); ALBUMIN 2.8 g/dL (3.4-5.0); ALKALINE PHOSPHATASE 71 U/L (46-116); ANION GAP 13.7 mEq/L (7-13); ASPARTATE AMNIOTRANSFERASE,AST 12 U/L (15-37); BILIRUBIN TOTAL 0.2 mg/dL (0.2-1.0); BLOOD UREA NITROGEN,BUN 71 mg/dL (7-18); BUN/CREATININE RATIO 33.5 (No establ ref range); C-REACTIVE PROTEIN 0.68 ng/dL (<=0.30); CALCIUM 8.6 mg/dL (8.5-10.1); CARBON DIOXIDE,CO2 26 mmol/L (21-32); CHLORIDE,CL 107 mmol/L (98-107); CREATININE 2.12 mg/dL (0.55-1.02); GLUCOSE RANDOM 117 mg/dL (70-99); MAGNESIUM 1.8 mg/dL (1.8-2.4); POTASSIUM,K 3.7 mmol/L (3.5-5.1); PROTEIN TOTAL,TP 6.2 g/dL (6.4-8.2); SODIUM,NA 143 mmol/L (136-145)
[2023-06-03 13:58] LABS: A/G RATIO 0.82; B-TYPE NATRIURETIC PEPTIDE,BNP 183 pg/ml (0-100); ESTIMATED GFR 23 mL/min (>=60); LACTIC ACID 0.6 mmol/L (0.4-2.0)
[2023-06-03 14:03] LABS: RBC,URINE 0-5 /HPF (0-5)
[2023-06-03 14:04] LABS: EPITHELIAL CELLS,URINE FEW /HPF (NOT SEEN); WBC,URINE 30-40 /HPF (0-5/HPF)
[2023-06-03 14:05] LABS: BACTERIA,URINE MODERATE /HPF (0-FEW/HPF)
[2023-06-03] MEDS ORDERED: cefTRIAXone 1 GM Vial IVPUSH ONE (15:00)
[2023-06-03] MEDS ORDERED: Sodium Chloride 0.9% 1,000 ML IV ONE ×2 (15:07→16:07)
[2023-06-03 15:41] VITALS: BP 139/58; PULSE 86
[2023-06-03] MEDS ORDERED: Take Home: Nitrofurantoin Monohydrate/Macrocrystalline 100 MG, 6 Cap Pack PO ONE (15:43)
== END 2023-06-03 16:47 ==
LOC: DL.ED 13:05
DX: N39.0 Urinary tract infection, site not specified (principal); R74.02 Elevation of levels of lactic acid dehydrogenase [LDH]; I12.9 Hypertensive chronic kidney disease with stage 1 through stage 4 chronic kidney disease, or unspecified chronic kidney disease; E11.22 Type 2 diabetes mellitus with diabetic chronic kidney disease; N18.9 Chronic kidney disease, unspecified; N17.9 Acute kidney failure, unspecified; E78.00 Pure hypercholesterolemia, unspecified; K21.9 Gastro-esophageal reflux disease without esophagitis; M19.90 Unspecified osteoarthritis, unspecified site; Z88.8 Allergy status to other drugs, medicaments and biological substances; Z88.2 Allergy status to sulfonamides; Z79.4 Long term (current) use of insulin; Z79.899 Other long term (current) drug therapy; Z79.82 Long term (current) use of aspirin; Z20.822 Contact with and (suspected) exposure to COVID-19
CPT/HCPCS: 36415; 71045; 80053; 81001; 82947; 83605; 83735; 83880; 84145; 84484; 85025; 85610; 85730; 86140; 87086; 87804; 93005; 93010; 96361; 96374; 99284; 99285-25; A9270-GY; C1758; J0696; J3490; J7030; U0002